=== PATIENT | male | born 1940 | race Caucasian/White ===

== ENCOUNTER 2023-03-23 20:56 | Inpatient (IN) | payer OTHER ==
--- OUTSIDE RECORDS SUMMARY | 2023-03-23 20:59 | XMS REPORT | Continuity of Care Document ---
:1940 Author Organization [facility] t Address [address] [facility] [address] [place] [address] Care Team Providers Name Role Phone NISHA SARGENT Primary Care Physician Unavailable ROSCOE SHEPHERD Attending Clinician Unavailable SHAUNA TREADWELL Attending Clinician Unavailable Roscoe Shepherd MD Attending Clinician 2, Adc Lab Attending Clinician Unavailable LabLuis Angel - Jatinder Attending Clinician Unavailable Doctor Unassigned, [place] Attending Clinician Unavailable RADIOLOGY Attending Clinician Unavailable Radiology Attending Clinician Unavailable NISHA SARGENT Admitting Clinician Unavailable Payers Payer Name Policy Type Policy Number Effective Date Expiration Date Jose clark Yours Florally [id number] 2022 00:00:00 SPRING Problems Condition Condition Condition Status Onset Resolution Last Treating Co mments Source Name Details Category Date Date Treatment Clinician Date No known No known Disease Unive rs active active ity of problems problems [facility] Allergies, Adverse Reactions, Alerts Allergy Allergy Status Severity Reaction(s) Onset Inactive Treating Comm ents Source Name Type Date Date Clinician NO KNOWN Drug Active Univers ALLERGIE Class ity of [facility] [place] Social History Social Habit Start Date Stop Date Quantity Comments Source Exposure to 2022-10-13 2022-10-23 Not sure [facility] SARS-CoV-2 (event) 00:00:00 08:28:00 Medica l Branch Sex Ass[birth year] [facility] 00:00:00 00:00:00 Medical Branch Smoking Status Start Date Stop Date Source Tobacco smoking consumption Univ [facility] Medical unknown Branch Medications Ordered Filled Start Stop Current Ordering Indication Dosage Frequency Signature Comments Components Source Medication Medication Date Date Medication? Clinician (SIG) Name Name tc No [id number] 26mCi 26 Univer s 99m-medrona 10-25 millicurie i ty of te 16:30: 16:18 , [place] (DRAXIMAGE 00 :00 Intravenou Med ical MDP-25) s, ONCE, 1 Branch injection dose, On Fri10/25/22 millicurie at 1030, Routine No known No No known Unive rs medications 1-24 medication it y of 09:58: s [address] No known No No known Unive rs medications -24 medication it y of 09:58: s [address] No known No No known Unive rs medications -24 medication it y of 09:58: s [address] No known No No known Unive rs medications -24 medication it y of 09:58: s [address] iopamidol 2021-09- No [id number] 80mL 80 mL, Univers (ISOVUE 2 1205 Intravenou ity o f 370-500 mL) 17:26: 17:32 s, ONCE, 1 [place] injection 00 :00 dose, On Medica l 80 mL Mon Branch 08/26/22 at 1145, Routine Vital Signs Vital Name Observation Time Observation Value Comments Source Systolic blood 2022-10-23 14:42:00 137 mm[Hg] Univer sity of pressure [facility] Diastolic blood 2022-10-23 14:42:00 71 mm[Hg] Unive rsity of [facility] Heart rate 2022-10-23 14:42:00 112 /min [facility] Body temperature 2022-10-23 14:42:00 36.61 Yelena [facility] Respiratory rate 2022-10-23 14:42:00 18 /min [facility] Body height 2022-10-23 14:42:00 170.2 cm [facility] Body weight 2022-10-23 14:42:00 72.576 kg [facility] BMI 2022-10-23 14:42:00 25.06 kg/m2 [facility] Oxygen saturation in 2022-10-23 14:42:00 96 /min [facility] Arterial blood by [facility] Pulse oximetry Branch Procedures Procedure Date / Time Performing Clinician Source Performed PHYSICIAN ORDERS 2022-10-15 06:01:00 Doctor Kolby, [facility] [place] [facility] HB CREATININE SERUM/BLOOD 2022-08-26 18:14:00 Radiology [facility] FOR IMAGING Medical Branch NOTICE OF BILLING 2022-08-26 16:36:39 Doctor Kolby, [facility] PRACTICES FOR MEDICARE [place] [facility] B ranch PATIENTS [facility] PATIENT FINANCIAL 2022-08-26 16:35:55 Doctor Unawolf, [facility] POLICY [place] [facility] NO SHOW OR MISSED 2022-08-26 16:34:58 Doctor Kolby, [facility] APPOINTMENT POLICY [place] [facility] h ACKNOWLEDGEMENT NOTICE OF PRIVACY 2022-08-26 16:34:15 Doctor Kolby, [facility] PRACTICES [place] [facility] CONSENT/REFUSAL FOR 2022-08-26 16:33:33 Doctor Kolby, [facility] DIAGNOSIS AND TREATMENT [place] [facility] ASSIGNMENT OF BENEFITS 2022-08-26 16:32:25 Doctor Kolby, [facility] [place] [facility] REFERRAL- REQUEST/RESPONSE 2022-08-20 06:01:00 Doctor Kolby , [facility] [place] [facility] Encounters Start End Encounter Admission Attending Care Care Encounter Source Date/Time Date/Time Type Type Clinicians Facility Department ID 2022-12-16 2022-12-16 Outpatient Claire TREADWELL [facility] [id number] [facility] 16:00:00 16:00:00 SHAUNA senior f [facility] 2022-10-25 2022-10-25 [facility] [id number] Univers 10:16:25 23:59:00 Encounter Roscoe CABELLO [id number] [place] [id number] [facility] [id number] [facility] 805 Branch 2022-10-25 2022-10-25 [facility] [id number] Univers 10:16:03 10:15:00 ROSCOE townsend [facility] 2022-10-25 2022-10-25 [facility] [id number] Univers 10:00:00 10:15:00 Encounter Roscoe CABELLO [id number] it[facility] [id number] [id number] [facility] [address] [place] 2022-10-23 2022-10-23 Personal Fitness Manager 2, Adc Lab [facility] [id number] Univers 09:45:00 10:00:00 Visit Roscoe Shepherd [id number] it[facility] [id number] [id number] Nj dical NAL 353 [facility] 2022-10-23 2022-10-23 [facility] [id number] Univers 09:00:00 09:43:02 ROSCOE ity [facility] 2022-10-23 2022-10-23 Office [facility] [id number] Univers 09:00:00 09:43:02 Visit Roscoe CABELLO [id number] i ty [facility] [id number] [id number] Nj dical [facility] 204 [facility] 2022-10-23 2022-10-23 [facility] [id number] Univers 08:30:00 08:30:00 ROSCOE ity [facility] 2022-10-17 2022-10-17 Personal Fitness Manager 2, Adc Lab [facility] [id number] Univers 10:00:00 10:15:00 Visit Roscoe Shepherd [id number] it[facility] [id number] [id number] Nj dical NAL [address] [place] [address] 2022-10-17 2022-10-17 Outpatient [facility] [id number] Univers 10:00:00 10:00:00 ROSCOE ity [facility] 2022-10-17 2022-10-17 Telephone Cora [facility] [id number] Univers 00:00:00 00:00:00 Roscoe IRINEO [id number] i ty of [id number] [place] [facility] [id number] Nj jamel JORDAN [address] [place] BUILDING 2022-10-15 2022-10-15 Personal Fitness Manager Lab, Ang - Db [facility] [id number] Univers 12:30:00 12:45:00 Visit Rosoce Shepherd [facility] [id number] ity of [place] [id number] [place] CHERRY?BLEA [phone] Nj papaifeoma [facility] [address] [place] MEDICAL OFFICE BUILDING 2022-10-15 2022-10-15 Outpatient R CORA [facility] [id number] Univers 08:30:00 10:09:48 ROSCOE ity of [facility] 2022-10-15 2022-10-15 Orders Doctor WALDO [id number] Univers 00:00:00 00:00:00 Only Unassigned, GAIL 350.1.13.10 ity of [place] [facility] [id number] [place] [id number] [address] 2022-08-26 2022-08-26 Outpatient R RADIOLOGY [facility] [id number] Univers 10:30:16 23:59:00 ity of [facility] 2022-08-26 2022-08-26 Hospital Radiology [facility] [id number] Univers 10:30:16 23:59:00 Encounter IRINEO [id number] it[place] [id number] [address] 2022-08-20 2022-08-20 Orders Doctor WALDO [id number] Univers 00:00:00 00:00:00 Only Unassigned, GAIL [id number] ity of [place] [facility] [id number] [place] [id number] [address] Results Test Description Test Time Test Comments Results Result Comments Source POCT CREATININE 2022-08-26 18:33:36 Test Item Value Reference Range Interpretation Comme nts POCT Creatinine (test code = [id number]) 1.1 mg/dL 0.6-1.3 Lab Interpretation (test code = 67329-6) Normal [facility]
[2023-03-23 22:09] LABS: Absolute Lymphocytes (CBC) 0.5 K/uL (0.7-4.9); Hematocrit 25.7 % (39.6-49.0); Lymphocytes % 5.7 % (15.3-44.8); MPV 6.7 fL (7.6-11.3); RBC Red Blood Cell Count 3.05 M/uL (4.33-5.43)
[2023-03-23] MEDS ORDERED: NA CHLORIDE 0.9% 1,000 ML ONE ×2 (22:11→23:26)
[2023-03-23 22:15] LABS: Albumin 2.7 g/dL (3.4-5.0); Bilirubin Total 0.9 mg/dL (0.2-1.0); Potassium 4.2 mEq/L (3.5-5.1); Protein, Total 6.8 g/dL (6.4-8.2)
--- NOTE | 2023-03-23 22:33 | RAD REPORT ---
EXAM DESCRIPTION: Carlos Single View03/23/2023 10:18 pm CLINICAL HISTORY: fever COMPARISON: November 2022 FINDINGS: The lungs appear clear of acute infiltrate. The heart is normal size. A battery pack overlies the left chest IMPRESSION: No acute abnormalities displayed
[2023-03-23 22:34] LABS: Protime INR 1.04
[2023-03-23 23:27] LABS: Blood Morphology Comment NOT SEEN (NOT SEEN); Platelet Estimate ADEQ
[2023-03-23 23:38] LABS: Specific Gravity 1.016 (1.005-1.030); Urine Bacteria <20 /HPF (<20); Urine Bilirubin NEGATIVE (Negative); Urine Blood Negative (Negative); Urine Clarity Clear (Clear); Urine Color Light-Yellow (Yellow); Urine Glucose NEGATIVE (Negative); Urine Protein TRACE (Negative); Urine RBC <5 /HPF (None Seen); Urine Urobilinogen Normal (Normal)
[2023-03-23] MEDS ORDERED: HYDROCORTISONE SUC 100 MG INJ ONE (23:46)
--- NOTE | 2023-03-24 00:43 | ER ---
Nurse's Notes [facility] Name: Good Barnes Age: 83 yrs Sex: Male : 1940 Arrival Date: 03/23/2023 Time: 20:56 Bed 17 Private MD: Diagnosis: Fever, unspecified;Hypotension, unspecified Presentation: 03/23 21:17 Chief complaint: EMS states: Pt's significant other called EMS reporting AMS. Pt's temp jb4 was 103.1 gave 975mg of tylenol. pt has a 20g to the RFA. BGL was 174. Coronavirus screen: At this time, the client does not indicate any symptoms associated with coronavirus-19. Ebola Screen: No symptoms or risks identified at this time. Initial Sepsis Screen: Does the patient meet any 2 criteria? Altered Mental Status. HR > 90 bpm. Does the patient have a suspected source of infection? No. Patient's initial sepsis screen is negative. Risk Assessment: Do you want to hurt yourself or someone else? Patient reports no desire to harm self or others. Onset of symptoms was March 23, 2023. Transition of care: patient was not received from another setting of care. 21:17 Method Of Arrival: EMS: [facility] jb4 21:17 Acuity: NATHAN 3 jb4 Historical: - Allergies: 21:20 No Known Allergies; jb4 - PMHx: 21:20 Cerebrovascular accident; diabetes mellitus; Hypertensive disorder; jb4 Hypercholesterolemia; - PSHx: 21:20 cardiac stent; hernia; jb4 Screenin:15 [facility] ED Fall Risk Assessment (Adult) History of falling in the last 3 months, jb4 including since admission No falls in past 3 months (0 pts) Confusion or Disorientation Yes (5 pts) Score/Fall Risk Level 3 or more points = High Risk Oriented to surroundings, Maintained a safe environment. Abuse screen: Denies threats or abuse. Nutritional screening: No deficits noted. Tuberculosis screening: No symptoms or risk factors identified. Assessment: 21:21 General: Appears in no apparent distress. uncomfortable, Behavior is calm, cooperative. jb4 Pain: Denies pain. Neuro: Level of Consciousness is awake, alert, obeys commands, Oriented to person, place. Cardiovascular: Patient's skin is warm and dry. Respiratory: Airway is patent Respiratory effort is even, unlabored, Respiratory pattern is regular, symmetrical. GI: No signs and/or symptoms were reported involving the gastrointestinal system. : No signs and/or symptoms were reported regarding the genitourinary system. EENT: Derm: Skin is intact, Skin is pink, warm \T\ dry. Musculoskeletal: Circulation, motion, and sensation intact. Range of motion: intact in all extremities. 22:30 Reassessment: Patient appears in no apparent distress at this time. No changes from jb4 previously documented assessment. Patient and/or family updated on plan of care and expected duration. Pain level reassessed. 23:15 Reassessment: Patient appears in no apparent distress at this time. No changes from jb4 previously documented assessment. Patient and/or family updated on plan of care and expected duration. Pain level reassessed. skin break down noted to the penis, provider notified. 03/24 00:22 Reassessment: Pt is resting in bed with eyes closed, respirations are even and jb4 unlabored. 01:18 Reassessment: Patient appears in no apparent distress at this time. No changes from jb4 previously documented assessment. Patient and/or family updated on plan of care and expected duration. Pain level reassessed. attempted to call report, instructed to wait for call back. Vital Signs: 03/23 21:17 BP 104 / 51; Pulse 111; Resp 18; Temp 99.5(O); Pulse Ox 96% on R/A; Weight 62.6 kg (R); jb4 21:45 BP 88 / 43; Pulse 101; Resp 17; Pulse Ox 100% on R/A; jb4 23:37 BP 91 / 44; Pulse 89; Resp 16; Pulse Ox 100% on R/A; jb4 03/24 00:00 BP 99 / 52; Pulse 86; Resp 16; Pulse Ox 100% on R/A; jb4 00:22 BP 86 / 40; Pulse 90; Resp 16; Temp 98.3(Ca); Pulse Ox 99% on R/A; jb4 00:43 BP 98 / 45; Pulse 87; Resp 16; Pulse Ox 100% on R/A; jb4 01:12 BP 124 / 56 Supine (man/); Pulse 88; Resp 17; Temp 97.9(Ca); Pulse Ox 98% on R/A; jb4 01:52 BP 110 / 50 Supine (man/); Pulse 81; Resp 14; Temp 97.8(Ca); Pulse Ox 98% on R/A; jb4 ED Course: 03/23 21:00 Patient arrived in ED. as6 21:[address] [facility] [facility]C [facility] snw 21:01 Martir Reno MD is Attending Physician. snw 21:17 Eze Martin, RN is Primary Nurse. jb4 21:20 Triage completed. jb4 21:20 Arm band placed on right wrist. jb4 21:49 Blood Culture Adult (2) Sent. bc6 21:49 CBC with Diff Sent. bc6 21:49 CMP Sent. bc6 21:49 Lactate w/ 2H reflex if indic. Sent. bc6 21:49 Protime (+inr) Sent. bc6 21:49 Ptt, Activated Sent. bc6 21:50 Inserted saline lock: 22 gauge in right forearm, using aseptic technique. bc6 22:19 Chest Single View XRAY In Process Unspecified. EDMS 03/24 00:41 Cyndi Lerma MD is Hospitalizing Provider. snw 02:15 No provider procedures requiring assistance completed. Patient admitted, IV remains in jb4 place. Administered Medications: 03/23 22:17 Drug: NS 0.9% IV 1000 ml Route: IV; Rate: 1 bolus; Site: right forearm; jb4 23:20 Drug: NS 0.9% IV 1000 ml Route: IV; Rate: 1000 ml; Site: right forearm; as6 23:40 Drug: Solu-CORTEF IVP 100 mg Route: IVP; Site: right antecubital; mb9 Medication: 23:15 VIS not applicable for this client. jb4 Outcome: 03/24 00:42 Decision to Hospitalize by Provider. snw 02:15 Admitted to Tele accompanied by tech, via stretcher, room 406, with chart. jb4 02:15 Condition: stable 02:15 Discharge instructions given to family, Instructed on the need for admit, Demonstrated understanding of instructions. 02:17 Patient left the ED. 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
--- NOTE | 2023-03-24 00:43 | EDPHYS ---
Physician Documentation [facility] [place] Name: Good Barnes Age: 83 yrs Sex: Male : 1940 Arrival Date: 03/23/2023 Time: 20:56 Bed 17 Private MD: ED Physician Martir Reno HPI: 03/23 23:39 This 83 yrs old Male presents to ER via EMS with complaints of fever, weakness. snw 23:39 The patient reports fever, that was measured at 103.1 degrees Fahrenheit. Modifying snw factors: 2mo ago with PA, last month with CVA. It is unknown whether or not the patient has had similar symptoms in the past. The patient has been recently seen by a physician: a neurologist, 1 week(s) ago, check up, no complaints. Historical: - Allergies: 21:20 No Known Allergies; jb4 - PMHx: 21:20 Cerebrovascular accident; diabetes mellitus; Hypertensive disorder; jb4 Hypercholesterolemia; - PSHx: 21:20 cardiac stent; hernia; jb4 ROS: 23:38 Eyes: Negative for injury, pain, redness, and discharge, ENT: Negative for injury, snw pain, and discharge, Neck: Negative for injury, pain, and swelling, Cardiovascular: Negative for chest pain, palpitations, and edema, Respiratory: Negative for shortness of breath, cough, wheezing, and pleuritic chest pain, Abdomen/GI: Negative for abdominal pain, nausea, vomiting, diarrhea, and constipation, Back: Negative for injury and pain, : Negative for injury, bleeding, discharge, and swelling. 23:38 Skin: Negative for injury, rash, and discoloration, Psych: Negative for depression, anxiety, suicide ideation, homicidal ideation, and hallucinations. 23:38 Constitutional: Positive for fatigue, fever, malaise, poor PO intake. 23:38 MS/extremity: Positive for weakness - generalized. 23:38 Neuro: Positive for weakness. Exam: 23:37 Head/Face: Normocephalic, atraumatic. Eyes: Pupils equal round and reactive to light, snw extra-ocular motions intact. Lids and lashes normal. Conjunctiva and sclera are non-icteric and not injected. Cornea within normal limits. Periorbital areas with no swelling, redness, or edema. ENT: Nares patent. No nasal discharge, no septal abnormalities noted. Tympanic membranes are normal and external auditory canals are clear. Oropharynx with no redness, swelling, or masses, exudates, or evidence of obstruction, uvula midline. Mucous membranes moist. Neck: Trachea midline, no thyromegaly or masses palpated, and no cervical lymphadenopathy. Supple, full range of motion without nuchal rigidity, or vertebral point tenderness. No Meningismus. Chest/axilla: Normal chest wall appearance and motion. Nontender with no deformity. No lesions are appreciated. Cardiovascular: Regular rate and rhythm with a normal S1 and S2. No gallops, murmurs, or rubs. Normal PMI, no JVD. No pulse deficits. Respiratory: Lungs have equal breath sounds bilaterally, clear to auscultation and percussion. No rales, rhonchi or wheezes noted. No increased work of breathing, no retractions or nasal flaring. Abdomen/GI: Soft, non-tender, with normal bowel sounds. No distension or tympany. No guarding or rebound. No evidence of tenderness throughout. Back: No spinal tenderness. No costovertebral tenderness. Full range of motion. Skin: Warm, dry with normal turgor. Normal color with no rashes, no lesions, and no evidence of cellulitis. MS/ Extremity: Pulses equal, no cyanosis. Neurovascular intact. Full, normal range of motion. Neuro: Awake and alert, GCS 15, oriented to person, place, time, and situation. Cranial nerves II-XII grossly intact. Motor strength 5/5 in all extremities. Sensory grossly intact. Cerebellar exam normal. Normal gait. Psych: Awake, alert, with orientation to person, place and time. Behavior, mood, and affect are within normal limits. 23:37 Constitutional: The patient appears alert, awake, febrile. Vital Signs: 21:17 BP 104 / 51; Pulse 111; Resp 18; Temp 99.5(O); Pulse Ox 96% on R/A; Weight 62.6 kg (R); jb4 21:45 BP 88 / 43; Pulse 101; Resp 17; Pulse Ox 100% on R/A; jb4 23:37 BP 91 / 44; Pulse 89; Resp 16; Pulse Ox 100% on R/A; jb4 03/24 00:00 BP 99 / 52; Pulse 86; Resp 16; Pulse Ox 100% on R/A; jb4 00:22 BP 86 / 40; Pulse 90; Resp 16; Temp 98.3(Ca); Pulse Ox 99% on R/A; jb4 00:43 BP 98 / 45; Pulse 87; Resp 16; Pulse Ox 100% on R/A; jb4 01:12 BP 124 / 56 Supine (man/); Pulse 88; Resp 17; Temp 97.9(Ca); Pulse Ox 98% on R/A; jb4 01:52 BP 110 / 50 Supine (man/); Pulse 81; Resp 14; Temp 97.8(Ca); Pulse Ox 98% on R/A; jb4 MDM: 03/23 21:23 Patient medically screened. snw 23:40 Differential diagnosis: viral Infection, bacterial infection. Data reviewed: vital snw signs, nurses notes. 23:41 I considered the following discharge prescriptions or medication management in the [facility] emergency department Medications were administered in the Emergency Department. See MAR. Care significantly affected by the following chronic conditions: Diabetes, Hypertension, CVA, PA. Counseling: I had a detailed discussion with the patient and/or guardian regarding: the historical points, exam findings, and any diagnostic results supporting the discharge/admit diagnosis, lab results, radiology results, the need for further work-up and treatment in the hospital. ED course: Pt alert, easily awakens, fever resolved. Hypotensive. Will give Solu-cortef and re-eval. 03/23 21:24 Order name: Blood Culture Adult (2) [facility] 03/23 21:24 Order name: CBC with Diff; Complete Time: 23:35 w 03/23 21:24 Order name: CMP; Complete Time: 22:24 snw 03/23 21:24 Order name: Lactate w/ 2H reflex if indic.; Complete Time: 22:24 [facility] 03/23 21:24 Order name: Protime (+inr); Complete Time: 22:48 snw 03/23 21:24 Order name: Ptt, Activated; Complete Time: 22:48 snw 03/23 21:24 Order name: Urinalysis w/ reflexes; Complete Time: 23:40 snw 03/23 22:13 Order name: Manual Differential; Complete Time: 23:35 EDMS 03/24 00:00 Order name: Flu; Complete Time: 01:16 snw 03/24 00:00 Order name: SARS RAPID; Complete Time: 01:16 snw 03/24 00:56 Order name: Urinalysis w/ reflexes EDMS 03/24 00:56 Order name: Basic Metabolic Panel EDMS 03/24 00:56 Order name: Basic Metabolic Panel EDMS 03/24 00:56 Order name: Basic Metabolic Panel EDMS 03/24 00:56 Order name: Basic Metabolic Panel EDMS 03/24 00:56 Order name: CBC with Automated Diff EDMS 03/24 00:56 Order name: CBC with Automated Diff EDMS 03/24 00:56 Order name: CBC with Automated Diff EDMS 03/24 00:56 Order name: CBC with Automated Diff EDMS 03/24 00:56 Order name: Magnesium EDMS 03/24 00:56 Order name: Magnesium EDMS 03/24 00:56 Order name: Magnesium EDMS 03/24 00:56 Order name: Magnesium EDMS 03/23 21:24 Order name: Chest Single View XRAY; Complete Time: 22:48 snw 03/24 02:00 Order name: CPAP snw 03/23 21:24 Order name: EKG; Complete Time: 21:25 snw 03/24 00:56 Order name: Heart Healthy EDMS 03/23 21:24 Order name: Accucheck; Complete Time: 22:18 snw 03/23 21:24 Order name: Cardiac monitoring; Complete Time: 21:57 snw 03/23 21:24 Order name: EKG - Nurse/Tech; Complete Time: 21:57 snw 03/23 21:24 Order name: IV Saline Lock - Large Bore; Complete Time: 21:40 snw 03/23 21:24 Order name: Labs collected and sent; Complete Time: 21:40 snw 03/23 21:24 Order name: O2 Per Protocol; Complete Time: 21:40 snw 03/23 21:24 Order name: O2 Sat Monitoring; Complete Time: 21:40 snw 03/23 21:24 Order name: Vital Signs; Complete Time: 21:40 snw Administered Medications: 22:17 Drug: NS 0.9% IV 1000 ml Route: IV; Rate: 1 bolus; Site: right forearm; jb4 23:20 Drug: NS 0.9% IV 1000 ml Route: IV; Rate: 1000 ml; Site: right forearm; as6 23:40 Drug: Solu-CORTEF IVP 100 mg Route: IVP; Site: right antecubital; mb9 Disposition: 03/24 13:13 Co-signature as Attending Physician, Martir Reno MD I agree with the assessment and kdr plan of care. Disposition Summary: 03/24/23 00:42 Hospitalization Ordered Hospitalization Status: Inpatient Admission snw Provider: Cyndi Lerma snw Location: Telemetry/MedSurg (Inpatient) snw Condition: Stable snw Problem: an acute exacerbation snw Symptoms: are unchanged snw Bed/Room Type: Standard snw Room Assignment: 406(03/24/23 01:15) jb4 Diagnosis - Fever, unspecified snw - Hypotension, unspecified snw Forms: - Medication Reconciliation Form snw - SBAR form snw Signatures: Dispatcher [employer] EDMS Martir Reno MD MD kdr [address] [place], ADVISORY INTERNS[employer]IP-C ADVISORY INTERNSHIP-Csnw Eze Martin, RN RN jb4 Gary Aldrich RN RN as6 Ivory Belle, RN RN mb9 Corrections: (The following items were deleted from the chart) 03/23 21:20 21:20 PMHx: Hypertensive disorder; jb4 jb4 03/24 01:15 00:42 snw jb4
[2023-03-24] MEDS ORDERED: ONDANSETRON 4 MG/2 ML VIAL IV PRN (00:49)
--- NOTE | 2023-03-24 00:49 | P.HP ---
Certification for Inpatient Patient admitted to: Inpatient With expected LOS: <2 Midnights Patient will require the following post-hospital care: Other (Speech, PT therapy) Practitioner: I am a practitioner with admitting privileges, knowledge of patient current condition, hospital course, and medical plan of care. Services: Services provided to patient in accordance with Admission requirements found in Title 42 Section 412.3 of the Code of Federal Regulations Patient History Date of Service: 03/24/23 Reason for admission: Fever History of Present Illness: 83 year old male with past medical history of MELVIN (noncomplaint w cpap) HLD, DM, Recent GA PCI x 4, CVA presents to the emergency room for fever. is at bedside is primary historian reports her has had fever, chills over the last 2 days. She reports he had had decreased appetite, 30 lb loss since GA november/CVA february. She reports he is not eating, he possibly aspirating with food and liquids. She reports her seeing neurologist, 1 week ago. She reports he ambulates with walker, has upper extremity weakness. she denies any overt cough, choking, verbalization of headache, dizziness, syncope, worsening focal deficits, shortness of breath, chest pain or edema. Allergies No Known Allergies Allergy (Verified 12/16/22 02:23) Home Medications: Ascorbic Acid [Vitamin C] 1,000 mg PO DAILY 12/16/22 Gabapentin 300 mg PO TID 12/16/22 Glimepiride 1 mg PO DAILY 12/16/22 Metformin HCl 1,000 mg PO DAILY 12/16/22 Omeprazole 20 mg PO DAILY 12/16/22 Vitamin B12 5000 1 tab PO DAILY 12/16/22 Vitamin D 5000 1 tab PO DAILY 12/16/22 Metoprolol Tartrate [Lopressor*] 25 mg PO BID 6AM 6PM #60 tab 12/19/22 lisinopriL [Lisinopril] 5 mg PO DAILY #30 tab 12/19/22 Amox/Clavulanate [Augmentin 875-125 Tab*] 875 mg PO BID #20 tab 12/27/22 Aspirin [Aspirin EC] 81 mg PO DAILY #30 tab 12/27/22 Atorvastatin Calcium [Lipitor] 40 mg PO BEDTIME #30 tab 12/27/22 POLYV ALC 1.4% Opth [Liquiflim Tears 1.4%*] 1 drops EACH EYE TID PRN bottle 12/27/22 Ticagrelor [Brilinta*] 90 mg PO BID #60 tab 12/27/22 - Past Medical/Surgical History Diabetic: Yes -: Type 2 Diabetes -: Hypertension -: Coronary Artery Disease -: CVA -: Hyperlipdemia -: Cardiac cath with stent -: Hernia repair -: Left carotid endarterectomy Psychosocial/ Personal History: Patient lives in [place] with his girlfriend of 20 years. He is originally from [place]. - Social History Alcohol use: No CD- Drugs: No Caffeine use: No Review of Systems General: As per HPI Physical Examination - Physical Exam General: Alert, Oriented x2, Other (Moderate generalized weakness, ) HEENT: Atraumatic, Normocephalic Neck: Supple, 2+ carotid pulse no bruit Respiratory: Clear to auscultation bilaterally, Diminished Cardiovascular: No edema, Regular rate/rhythm Capillary refill: <2 Seconds Gastrointestinal: Normal bowel sounds Musculoskeletal: No clubbing, No swelling Integumentary: No rashes, No breakdown Neurological: Normal speech, Cranial nerves 3-12 intact - Studies Laboratory Data (last 24 hrs) 03/23/23 21:40: PT 12.3, INR 1.04, APTT 34.2 03/23/23 21:40: Sodium 137, Potassium 4.2, BUN 24 H, Creatinine 0.99, Glucose 129 H, Total Bilirubin 0.9, AST 32, ALT 42, Alkaline Phosphatase 82 03/23/23 21:40: WBC 8.10, Hgb 8.5 L, Hct 25.7 L, Plt Count 207 Assessment and Plan - Plan Assessment/Plan Sepsis like d/t aspiration pneumonia Recent CVA recent 30 lb wt loss Recent GA PCI x 4on plavix HLD HTN DM DVT prophlx Assessment/Plan Sepsis like d/t aspiration pnemonia start Zosyn,Speech/swallow eval, BC, Urine cultures, CXR ordered Recent CVA PT, speech eval, CM for DC planning Recent GA PCI x 4on plavix recent 30 lb wt loss Dietary consult for edwardo count, wt loss HLD resume apporp home meds when tolerating po HTN DM DVT prophlx Diet NPO until swallow pascual Full Code DVT Lovenox Plan to discharge in: Greater than 2 days - Advance Directives Does patient have a Living Will: No Does patient have a Durable POA for Healthcare: Yes - Code Status/Comfort Care Code Status: Full Code Physician Review: Patient Assessed, Agree with Above Assessment and Plan Critical Care: No Time Spent Managing Pts Care (In Minutes): 55
[2023-03-24 01:14] LABS: SARS-CoV-2 Antigen Rapid Res Negative (Negative)
[2023-03-24 02:46] VITALS: BMI 22.2
[2023-03-24 06:13] LABS: Absolute Lymphocytes (CBC) 0.4 K/uL (0.7-4.9); Hematocrit 23.5 % (39.6-49.0); Lymphocytes % 6.8 % (15.3-44.8); MCV 83.9 fL (80-100); MPV 6.8 fL (7.6-11.3); RBC Red Blood Cell Count 2.81 M/uL (4.33-5.43)
[2023-03-24 06:26] LABS: Potassium 4.2 mEq/L (3.5-5.1)
[2023-03-24] MEDS: INSULIN -REGULAR HUMAN 50 UNIT/0.5 ML ML SQ SCH ×4 (07:30→21:08)
[2023-03-24] MEDS: PIPER TAZO 3.375 GM in NA CHLORIDE 0.9% 100 ML IV SCH ×2 (08:53→17:01)
[2023-03-24] MEDS: ENOXAPARIN 40 MG/0.4 ML SQ SCH (08:53)
[2023-03-24] MEDS: ASPIRIN EC 81 MG TAB PO SCH (11:20)
[2023-03-24] MEDS: CLOPIDOGREL 75 MG TABLET PO SCH (11:20)
--- NOTE | 2023-03-24 14:21 | RAD REPORT ---
EXAM DESCRIPTION: CT - Thorax Wo Con - 03/24/2023 10:45 am CLINICAL HISTORY: eval for aspiration COMPARISON: No comparisons TECHNIQUE: Axial thin cut images of the chest were obtained without IV contrast. Multiplanar reforma ts were generated and reviewed. All CT scans are performed using dose optimization technique as appropriate and may include automated exposure control or mA/KV adjustment according to patient size. FINDINGS: No mass or infiltrate in the lung parenchyma, apart from mild right basilar reticular suarez ges, likely atelectatic. No pleural thickening. Trace right pleural effusion. . No pneumothorax. No abnormal mediastinal or hilar masses or lymphadenopathy seen. No significant aortic or pulmonary a rtery findings. Assessment is limited in the absence of IV contrast. Moderate to advanced atherosclerotic calcifications along the proximal coronary arteries and thoracic aorta. No chest wall mass or abnormal axillary lymphadenopathy. Evaluation of the solid abdominal structures reveals bilateral renal cysts, including a transcortical left superior pole cyst with thin calcified septations, incompletely imaged. Small left liver lobe s ubcapsular measured 1.8 centimeter. IMPRESSION: No acute process within the chest. Incidental findings as above.
--- NOTE | 2023-03-24 19:30 | EKG ---
Test Date: 2023-03-23 Test Time: 21:58:21 Impersonator Character: [place] MEASUREMENT RESULTS: Intervals: Rate: 102 IN: 164 QRSD: 84 QT: 310 QTc: 404 [place]: P: 61 IN: 164 QRS: 35 T: 94 INTERPRETIVE STATEMENTS: Sinus tachycardia Nonspecific T wave abnormality Abnormal ECG Compared to ECG 12/22/2022 19:48:56 Sinus rhythm no longer present T-wave abnormality still present Electronically Signed On 03-24-23 19:28:34 CDT by Isaias Perez
[2023-03-24] MEDS: ATORVASTATIN 40 MG TAB PO SCH (21:08)
[2023-03-24] MEDS: ACETAMINOPHEN 500 MG TAB PO PRN (21:12)
[2023-03-25] MEDS: PIPER TAZO 3.375 GM in NA CHLORIDE 0.9% 100 ML IV SCH ×3 (00:36→16:31)
[2023-03-25 05:46] LABS: Hematocrit 27.7 % (39.6-49.0); Lymphocytes % 19.8 % (15.3-44.8); MCV 84.3 fL (80-100); MPV 6.9 fL (7.6-11.3); RBC Red Blood Cell Count 3.28 M/uL (4.33-5.43)
[2023-03-25 06:04] LABS: Magnesium 2.1 mg/dL (1.6-2.4); Potassium 3.4 mEq/L (3.5-5.1)
[2023-03-25] MEDS: INSULIN -REGULAR HUMAN 50 UNIT/0.5 ML ML SQ SCH ×4 (07:30→21:00)
[2023-03-25] MEDS: CLOPIDOGREL 75 MG TABLET PO SCH (08:29)
[2023-03-25] MEDS: FOLIC ACID 1 MG TABLET PO SCH (08:29)
[2023-03-25] MEDS: ASPIRIN EC 81 MG TAB PO SCH (08:29)
[2023-03-25] MEDS: ENOXAPARIN 40 MG/0.4 ML SQ SCH (08:29)
[2023-03-25] MEDS ORDERED: CLOPIDOGREL 75 MG TABLET PO SCH (09:00)
[2023-03-25] MEDS ORDERED: ASPIRIN EC 81 MG TAB PO SCH (09:00)
[2023-03-25] MEDS ORDERED: POTASSIUM CL SA 10 MEQ TAB PO ONE (09:00)
--- NOTE | 2023-03-25 15:52 | P.PN ---
Subjective Date of Service: 03/25/23 Chief Complaint: Fever No acute events overnight. He reports generalized weakness. 4/4 blood cultures have returned positive for Streptococcus. He denies any chest pain, palpitations, or shortness of breath. He is working well with PT. Review of Systems 10-point ROS is otherwise unremarkable General: Weakness Physical Examination - Vital Signs Temperature: 97.6 F Blood Pressure: 113/53 Pulse: 81 Respirations: 16 Pulse Ox (%): 98 - Physical Exam General: Alert, In no apparent distress, Oriented x3 HEENT: Atraumatic, Mucous membr. moist/pink, Sclerae nonicteric Neck: JVD not distended Respiratory: Clear to auscultation bilaterally, Normal air movement Cardiovascular: No edema, Regular rate/rhythm, Normal S1 S2, No gallops, No rubs, No murmurs Gastrointestinal: Normal bowel sounds, Soft and benign, Non-distended, No tenderness, No rebound, No guarding Musculoskeletal: No clubbing Integumentary: No rashes Neurological: Normal speech, Normal affect - Studies Microbiology Data (last 24 hrs): 03/23/23 22:00 Blood - Blood Blood Culture Gram Stain - Final 03/23/23 22:00 Blood - Blood Gram Stain - Final 03/23/23 21:40 Blood - Blood Blood Culture Gram Stain - Final 03/23/23 21:40 Blood - Blood Gram Stain - Final Assessment And Plan - Plan # Streptococcus Bacteremia - Unclear source at this time - Chest x-ray = "no acute abnormalities displayed" - CT chest = "no acute process within the chest." - Does not meet sepsis criteria - Consulted Infectious Diseases - recommendations appreciated - Continue piperacillin-tazobactam - Ordered transthoracic echocardiogram to evaluate for valvular vegetations # Coronary Artery Disease s/p PCI # History of Cerebrovascular Accident # Right Carotid Artery Stenosis s/p Carotid Endarterectomy # Moderate Left Carotid Artery Stenosis # Hypertension # Dyslipidemia - Continue aspirin, atorvastatin, clopidogrel - Hold metoprolol, lisinopril due to soft blood pressures on arrival # Unintentional Weight Loss - Although his poor nutritional intake can explain his unintentional weight loss, it was emphasized that it is important for him to maintain all age- appropriate cancer screens - Consult nutrition # Type II Diabetes Mellitus - Correction scale insulin # Bilateral Renal Cysts # Left Liver Lobe Lesion (1.8 cm) - Noted on CT scan - Follow-up with PCP for further evaluation Nelson Membreno M.D.
[2023-03-25] MEDS: ACETAMINOPHEN 500 MG TAB PO PRN (21:26)
[2023-03-25] MEDS: ATORVASTATIN 40 MG TAB PO SCH (21:27)
[2023-03-26] MEDS: PIPER TAZO 3.375 GM in NA CHLORIDE 0.9% 100 ML IV SCH ×3 (00:20→16:20)
[2023-03-26 07:00] LABS: Absolute Lymphocytes (CBC) 0.9 K/uL (0.7-4.9); Hematocrit 24.6 % (39.6-49.0); Lymphocytes % 18.4 % (15.3-44.8); MCV 83.7 fL (80-100); MPV 6.6 fL (7.6-11.3); RBC Red Blood Cell Count 2.93 M/uL (4.33-5.43)
[2023-03-26 07:23] LABS: Potassium 3.8 mEq/L (3.5-5.1)
[2023-03-26] MEDS: INSULIN -REGULAR HUMAN 50 UNIT/0.5 ML ML SQ SCH ×4 (07:30→20:16)
[2023-03-26] MEDS: CLOPIDOGREL 75 MG TABLET PO SCH (07:55)
[2023-03-26] MEDS: ENOXAPARIN 40 MG/0.4 ML SQ SCH (07:55)
[2023-03-26] MEDS: FOLIC ACID 1 MG TABLET PO SCH (07:55)
[2023-03-26] MEDS: ASPIRIN EC 81 MG TAB PO SCH (07:55)
[2023-03-26] MEDS ORDERED: POTASSIUM CL SA 10 MEQ TAB PO ONE (09:00)
--- NOTE | 2023-03-26 10:20 | P.CNS ---
Date of Consult: 03/26/23 Reason for Consult: Bacteremia Chief Complaint: Fever History of Present Illness: Patient is an 83 yo male with a hisotry of DM, recent NH s/p PCIx4, CVA and HTN who presented to the ED with complaints of fever. Patient reported fever/chills over 2 days prior to admission along with decreased appetite. ED workup revealing bacteremia and ID was consulted. Allergies No Known Allergies Allergy (Verified 12/16/22 02:23) Home medications list reviewed: Yes Home Medications: Ascorbic Acid [Vitamin C] 500 mg PO BID 12/16/22 Gabapentin 300 mg PO TID 12/16/22 Glimepiride 1 mg PO DAILY 12/16/22 Omeprazole 20 mg PO DAILY 12/16/22 Vitamin B12 5000 1 tab PO DAILY 12/16/22 Vitamin D 5000 1 tab PO DAILY 12/16/22 Metoprolol Tartrate [Lopressor*] 25 mg PO BID 6AM 6PM #60 tab 12/19/22 lisinopriL [Lisinopril] 5 mg PO DAILY #30 tab 12/19/22 Aspirin [Aspirin EC] 81 mg PO DAILY #30 tab 12/27/22 Atorvastatin Calcium [Lipitor] 40 mg PO BEDTIME #30 tab 12/27/22 POLYV ALC 1.4% Opth [Liquiflim Tears 1.4%*] 1 drops EACH EYE TID PRN bottle 12/27/22 Ticagrelor [Brilinta*] 90 mg PO BID #60 tab 12/27/22 Clopidogrel Bisulfate [Plavix*] 1 tab PO DAILY 03/24/23 Finasteride [Proscar*] 1 tab PO DAILY 03/24/23 Mirtazapine [Remeron*] 1 tab PO DAILY 03/24/23 - Past Medical/Surgical History Diabetic: Yes -: Type 2 Diabetes -: Hypertension -: Coronary Artery Disease -: CVA -: Hyperlipdemia -: Cardiac cath with stent -: Hernia repair -: Left carotid endarterectomy Psychosocial/ Personal History: Patient lives in [place] with his girlfriend of 20 years. He is originally from [place]. - Social History Alcohol use: No CD- Drugs: No Caffeine use: No Place of Residence: Home Review of Systems 10-point ROS is otherwise unremarkable General: Fever, Weakness Neurological: As per HPI Physical Examination Temp Pulse Resp BP Pulse Ox 97.9 F 90 18 118/57 L 99 03/26/23 08:00 03/26/23 08:00 03/26/23 08:00 03/26/23 08:00 03/26/23 08:00 General: Alert, In no apparent distress, Oriented x3 HEENT: Atraumatic, Normocephalic Neck: Supple, JVD not distended Respiratory: Clear to auscultation bilaterally, Normal air movement Cardiovascular: No edema, Normal pulses Gastrointestinal: Normal bowel sounds, Soft and benign, Non-distended Musculoskeletal: No clubbing, No swelling Integumentary: No rashes, No breakdown Neurological: Normal speech, Normal affect Urinary: Jasso catheter Laboratory Data - Reviewed Microbiology Data - Reviewed Imagings Data: - Reviewed Conclusions/Impression: Problem List CAD s/p PCI 2022 CVA 2022 Hypertension Hyperlibidemia Diabetes Mellitus type II Unintentional weight loss Bacteremia Moderate PCM Anemia Enterococcus faecalis Bacteremia - Blood cultures 03/23: Enterococcus faecalis - Urinalysis 03/23 unremarkable - Currently on Zosyn (started 03/24) unclear etiology pending TTE. Recent NH with stent placement in 2022. Recent CVA november 2022. - No leukocytosis - Afebrile >48 hours Recommendations - Continue Zosyn for now. - Follow up with TTE results - Supplemental nutrition Case discussed with Dr. Heredia, N. ID will follow up and monitor patient closely.
--- NOTE | 2023-03-26 11:17 | P.PN ---
Subjective Date of Service: 03/26/23 Chief Complaint: Fever He states that he had difficulty sleeping overnight. He has been afebrile, and reports no particular concerns this morning. 4/4 blood cultures have returned positive for 2 different strains of Enterococcus Faecalis. Infectious Diseases w as consulted, recommendations are appreciated. He denies any chest pain, palpitations, or shortness of breath. Review of Systems 10-point ROS is otherwise unremarkable Physical Examination - Vital Signs Temperature: 97.9 F Blood Pressure: 118/57 Pulse: 90 Respirations: 18 Pulse Ox (%): 99 - Studies Microbiology Data (last 24 hrs): 03/23/23 21:40 Blood - Blood Aerobic Blood Culture - Final Enterococcus Faecalis 03/23/23 21:40 Blood - Blood Blood Culture Gram Stain - Final 03/23/23 21:40 Blood - Blood Anaerobic Blood Culture - Final Enterococcus Faecalis 03/23/23 21:40 Blood - Blood Gram Stain - Final 03/23/23 22:00 Blood - Blood Aerobic Blood Culture - Final Enterococcus Faecalis 03/23/23 22:00 Blood - Blood Blood Culture Gram Stain - Final 03/23/23 22:00 Blood - Blood Anaerobic Blood Culture - Final Enterococcus Faecalis 03/23/23 22:00 Blood - Blood Gram Stain - Final Assessment And Plan - Plan - Physical Exam General: Alert, In no apparent distress, Oriented x3 HEENT: Atraumatic, Mucous membr. moist/pink, Sclerae nonicteric Neck: JVD not distended Respiratory: Clear to auscultation bilaterally, Normal air movement Cardiovascular: No edema, Regular rate/rhythm, No murmurs Gastrointestinal: Normal bowel sounds, Soft, Non-distended, No tenderness Musculoskeletal: No clubbing Integumentary: No rashes Neurological: Normal speech, Normal affect # Enterococcus Faecalis Bacteremia - Unclear source at this time - Urinalysis = fairly unremarkable - Chest x-ray = "no acute abnormalities displayed" - CT chest = "no acute process within the chest." - Does not meet sepsis criteria - Consulted Infectious Diseases and spoke with SCHOOL SUPERINTENDENT Sgarbi - recommendations appreciated - Continue piperacillin-tazobactam - Ordered transthoracic echocardiogram to evaluate for valvular vegetations # Coronary Artery Disease s/p PCI # History of Cerebrovascular Accident # Right Carotid Artery Stenosis s/p Carotid Endarterectomy # Moderate Left Carotid Artery Stenosis # Hypertension # Dyslipidemia - Continue aspirin, atorvastatin, clopidogrel - Hold metoprolol, lisinopril due to soft blood pressures on arrival # Unintentional Weight Loss - Although his poor nutritional intake can explain his unintentional weight loss, it was emphasized that it is important for him to maintain all age- appropriate cancer screens - Advised to follow-up with PCP to obtain these screens, including, but not limited to, colonoscopy, prostate cancer, and lung cancer screening - Consult nutrition # Type II Diabetes Mellitus - Correction scale insulin # Bilateral Renal Cysts # Left Liver Lobe Lesion (1.8 cm) - Noted on CT scan - Follow-up with PCP for further evaluation Nelson Membreno M.D.
[2023-03-26] MEDS: ACETAMINOPHEN 500 MG TAB PO PRN (20:15)
[2023-03-26] MEDS: ATORVASTATIN 40 MG TAB PO SCH (20:15)
[2023-03-26] MEDS: GLUCERNA SHAKE 237 ML CAN PO SCH (20:16)
[2023-03-27] MEDS: PIPER TAZO 3.375 GM in NA CHLORIDE 0.9% 100 ML IV SCH ×3 (01:42→17:00)
[2023-03-27 05:20] LABS: Hematocrit 28.8 % (39.6-49.0)
[2023-03-27] MEDS: INSULIN -REGULAR HUMAN 50 UNIT/0.5 ML ML SQ SCH ×4 (07:30→22:19)
[2023-03-27] MEDS: FOLIC ACID 1 MG TABLET PO SCH (08:22)
[2023-03-27] MEDS: CLOPIDOGREL 75 MG TABLET PO SCH (08:22)
[2023-03-27] MEDS: ASPIRIN EC 81 MG TAB PO SCH (08:22)
[2023-03-27] MEDS: ENOXAPARIN 40 MG/0.4 ML SQ SCH (08:22)
[2023-03-27] MEDS: GLUCERNA SHAKE 237 ML CAN PO SCH ×2 (08:23→20:30)
--- NOTE | 2023-03-27 12:12 | EKG ---
Test Date: 2023-03-27 Test Time: 11:20:29 [employer]: [place] MEASUREMENT RESULTS: Intervals: Rate: 115 HI: 192 QRSD: 80 QT: 324 QTc: 448 [place]: P: 76 HI: 192 QRS: 11 T: 267 INTERPRETIVE STATEMENTS: Sinus tachycardia T wave abnormality, consider lateral ischemia Abnormal ECG Compared to ECG 03/23/2023 21:58:21 Possible ischemia now present T-wave abnormality still present Electronically Signed On 03-27-23 12:11:41 CDT by Jason Jha
[2023-03-27 12:18] LABS: Phosphorus 2.4 mg/dL (2.5-4.9); Potassium 3.8 mEq/L (3.5-5.1)
--- NOTE | 2023-03-27 12:54 | ECHO ---
HEIGHT: 5 ft 6 in WEIGHT: 138 lb 0 oz DATE OF STUDY: 03/27/[address]: Nelson Membreno MD 2-DIMENSIONAL: YES M.MODE: YES DOPPLER: YES COLOR FLOW: YES TDS: PORTABLE: YES DEFINITY: BUBBLE STUDY: DIAGNOSIS: BACTEREMIA CARDIAC HISTORY: CATHERIZATION: SURGERY: PROSTHETIC VALVE: PACEMAKER: MEASUREMENTS (cm) DIASTOLIC (NORMALS) SYSTOLIC (NORMALS) IVSd 0.9 (0.6-1.2) LA Diam 3.2 (1.9-4.0) LVEF 60% LVIDd 3.8 (3.5-5.7) LVIDs 2.6 (2.0-3.5) %FS 31% LVPWd 1.0 (0.6-1.2) Ao Diam 2.9 (2.0-3.7) 2 DIMENSIONAL ASSESSMENT: RIGHT ATRIUM: NORMAL LEFT ATRIUM: NORMAL RIGHT VENTRICLE: NORMAL LEFT VENTRICLE: NORAML TRICUSPID VALVE: NORMAL MITRAL VALVE: MILD MITRAL REGURGITATION PULMONIC VALVE: NORMAL AORTIC VALVE: MILD AORTIC INSUFFICIENCY PERICARDIAL EFFUSION: NONE AORTIC ROOT: NORMAL LEFT VENTRICULAR WALL MOTION: NORMAL DOPPLER/COLOR FLOW: SEE BELOW COMMENTS: 1. NORMAL LEFT VENTRICULAR EJECTION FRACTION 55-60% WITH NORMAL WALL MOTION 2. MILD MITRAL REGURGITATION 3. MILD AORTIC INSUFFICIENCY 4. THICKENED AORTIC VALVE/ MITRAL VALVE, NO CLEAR VENEGATION IS SEEN. IF CLINICALLY INDICATED TRANSESOPHAGEAL ECHOCARDIOGRAM CAN BE HELPFUL. TECHNOLOGIST: VERONICA KNOX
[2023-03-27] MEDS ORDERED: POTASSIUM PHOS IN 0.9 % NACL 15 MMOL/250 ML BAG IV ONE (13:46)
--- NOTE | 2023-03-27 14:55 | P.PN ---
Date of Service: 03/27/23 Chief Complaint: Fever Subjective: Patient seen and examined at bedside. Sitting in chair, breathing comfortably on room air. Reports restless and difficulty sleeping overnight. Physical Examination Temp Pulse Resp BP Pulse Ox 97.6 F 109 H 18 149/65 H 98 03/27/23 12:00 03/27/23 12:00 03/27/23 12:00 03/27/23 12:00 03/27/23 12:00 General: Alert, In no apparent distress, Oriented x3 HEENT: Atraumatic, Normocephalic Neck: Supple, JVD not distended Respiratory: Clear to auscultation bilaterally, Normal air movement Cardiovascular: No edema, Normal pulses Gastrointestinal: Normal bowel sounds, Soft and benign, Non-distended Musculoskeletal: No clubbing, No swelling Integumentary: No rashes, No breakdown Neurological: Normal speech, Normal affect Urinary: Jasso catheter draining yellow urine. Laboratory Data - Reviewed Microbiology Data - Reviewed Imagings Data: - Reviewed Medication List: Reviewed Assessment and Plan Problem List CAD s/p PCI 2022 CVA 2022 Hypertension Hyperlibidemia Diabetes Mellitus type II Unintentional weight loss Bacteremia Moderate PCM Anemia Enterococcus faecalis Bacteremia - Blood cultures 03/23: Enterococcus faecalis - Urinalysis 03/23 unremarkable - Currently on Zosyn (started 03/24) unclear etiology - Repeat blood cultures - Recent LA with stent placement in 2022. Recent CVA november 2022. - No leukocytosis - Afebrile >48 hours Recommendations - Continue current antibiotic for now. Patient will require at least 2 weeks of antibiotic therapy. Consider switch to Unasyn IV. - TTE no clear evidence of vegetation, VINCE may be warranted. He has a history of LA with stent placements 2022. Continue with IV antibiotics. Case discussed with Dr. Heredia, N. ID will continue to follow patient as needed.
--- NOTE | 2023-03-27 19:23 | P.PN ---
Subjective Date of Service: 03/27/23 Chief Complaint: Fever This morning, he expresses frustration about the inability to sleep in the hospital. He requests a sleep aid tonight. His transthoracic echocardiogram was inconclusive. A transesophageal echocardiogram has been ordered for tomorrow morning to definitively exclude infective endocarditis. He denies any chest pain, palpitations, or shortness of breath. Review of Systems 10-point ROS is otherwise unremarkable Physical Examination - Vital Signs Temperature: 97.6 F Blood Pressure: 149/65 Pulse: 109 Respirations: 18 Pulse Ox (%): 98 Assessment And Plan - Plan - Physical Exam General: Alert, In no apparent distress, Oriented x3 HEENT: Atraumatic, Mucous membr. moist/pink, Sclerae nonicteric Neck: JVD not distended Respiratory: Clear to auscultation bilaterally, Normal air movement Cardiovascular: No edema, Regular rate/rhythm, No murmurs Gastrointestinal: Normal bowel sounds, Soft, Non-distended, No tenderness Musculoskeletal: No clubbing Integumentary: No rashes Neurological: Normal speech, Normal affect # Enterococcus Faecalis Bacteremia - Unclear source at this time - Urinalysis = fairly unremarkable - Chest x-ray = "no acute abnormalities displayed" - CT chest = "no acute process within the chest." - Does not meet sepsis criteria - Consulted Infectious Diseases and spoke with HORTICULTURE INSTRUCTOR Sgarbi - recommendations appreciated - Continue piperacillin-tazobactam - Transthoracic echocardiogram = "1. normal left ventricular ejection fraction 55-60% with normal wall motion 2. mild mitral regurgitation 3. mild aortic insufficiency 4. thickened aortic valve/ mitral valve, no clear venegation is seen. if clinically indicated transesophageal echocardiogram can be helpful." - Ordered transesophageal echocardiogram # Coronary Artery Disease s/p PCI # History of Cerebrovascular Accident # Right Carotid Artery Stenosis s/p Carotid Endarterectomy # Moderate Left Carotid Artery Stenosis # Hypertension # Dyslipidemia - Continue aspirin, atorvastatin, clopidogrel - Hold metoprolol, lisinopril due to soft blood pressures on arrival # Unintentional Weight Loss - Although his poor nutritional intake can explain his unintentional weight loss, it was emphasized that it is important for him to maintain all age- appropriate cancer screens - Advised to follow-up with PCP to obtain these screens, including, but not limited to, colonoscopy, prostate cancer, and lung cancer screening - Consult nutrition # Type II Diabetes Mellitus - Correction scale insulin # Bilateral Renal Cysts # Left Liver Lobe Lesion (1.8 cm) - Noted on CT scan - Follow-up with PCP for further evaluation Nelson Membreno M.D.
[2023-03-27] MEDS ORDERED: ALPRAZOLAM 0.25 MG TABLET PO ONE (20:10)
[2023-03-27] MEDS: ATORVASTATIN 40 MG TAB PO SCH (20:29)
[2023-03-27] MEDS: MELATONIN 5 MG TABLET PO PRN (22:20)
--- NOTE | 2023-03-27 23:01 | CON ---
Date of Consultation: 03/27/2023 Reason For Consultation: Questionable endocarditis. History Of Present Illness: An 83-year-old male with history of diabetes, dyslipidemia, coronary art jerardo disease, CVA, presented with fever and chills. Found to have bacteremia with Enterococcus faecal is, all 4 bottles, and there was a concern about endocarditis. An echo was done and read and evaluat ed it today. Has mitral valve and aortic valve regurgitation, but the echo was not very clear whethe r there were vegetations or not. I could not appreciate any vegetation. Hence, I was asked to evalu ate for the need for VINCE. Past Medical History: As outlined above in HPI. Medications: Refer to reconciliation sheet for detailed list. Allergies: NO KNOWN DRUG ALLERGIES. Family History: No premature coronary artery disease or cancer. Social History: He does not smoke or drink. Does not use any drugs. Review of Systems: All systems were reviewed and they were negative except what is mentioned in HPI. Physical Examination: Vital Signs: Reviewed. Head and Neck: Pupils are equal, reactive to light. Intact eye movements. No JVD. No cervical lym phadenopathy. Neck is supple. Thyroid is not enlarged. Lungs: Clear to auscultation bilaterally. No rhonchi, wheezes, or crackles. No accessory muscle us e. Heart: Regular rate and rhythm. No extra sounds. Abdomen: Soft, nontender. Bowel sounds positive. No organomegaly. No masses or hernia. No rigidi ty or rebound. Extremities: No edema, clubbing, or cyanosis. Intact pulses. Skin: No rash. Neurologic: Alert, awake, oriented x3. No acute focal deficits appreciated. Investigations: BUN 12, creatinine 0.81, and hemoglobin is 9.3. Assessment And Recommendations: 1.Bacteremia with Enterococcus faecalis. Transthoracic echo was with slightly poor windows, so I wa s not able to tell if there were vegetations or not. There is a mitral valve regurgitation and aorti c valve regurgitation that are mild. At any rate, I will proceed with transesophageal echocardiogram tomorrow. Keep him n.p.o. past midnight and the fact that his cultures are becoming sterile, argues against endocarditis. Definitive answer will be with a transesophageal echocardiogram tomorrow. 2.Dyslipidemia. Continue statin. 3.Coronary artery disease. Continue aspirin and Plavix as well as statin. Thank you for the consult. SR/MODL Voice ID: [id number] Report ID: [id number]
[2023-03-27 23:32] VITALS: O2SAT 97
[2023-03-28] MEDS: PIPER TAZO 3.375 GM in NA CHLORIDE 0.9% 100 ML IV SCH ×2 (00:41→10:52)
[2023-03-28] MEDS: INSULIN -REGULAR HUMAN 50 UNIT/0.5 ML ML SQ SCH ×4 (07:30→20:14)
[2023-03-28] MEDS ORDERED: MIDAZOLAM HCL 5 MG/5 ML INJ ONE (07:32)
[2023-03-28] MEDS ORDERED: METOPROLOL TARTRATE 5 MG/5 ML INJ IV ONE (07:32)
[2023-03-28] MEDS ORDERED: MIDAZOLAM HCL 10 ML ONE (07:32)
[2023-03-28] MEDS ORDERED: LIDOCAINE VISCOUS 2% SOLN 15 ML UDC ONE (07:33)
[2023-03-28] MEDS ORDERED: PHENOL 1.4% ORAL SPRAY 180ML ONE (07:33)
[2023-03-28] MEDS ORDERED: NA CHLORIDE 0.9% 500 ML ONE (07:33)
[2023-03-28] MEDS ORDERED: FLUMAZENIL 0.1 MG/ML (5 mL VIAL) IV ONE (07:33)
[2023-03-28] MEDS ORDERED: ATROPINE SULF 1 MG/10 ML SYR IV ONE (07:33)
--- NOTE | 2023-03-28 09:17 | P.PN ---
Date of Service: 03/28/23 Chief Complaint: Fever Subjective: No acute events reported overnight. Patient off unit for VINCE. Physical Examination Temp Pulse Resp BP Pulse Ox 98.0 F 95 H 16 132/61 95 03/28/23 08:00 03/28/23 08:00 03/28/23 08:00 03/28/23 08:00 03/28/23 08:00 Patient off unit for Transesophageal echocardiogram at this time. Laboratory Data - Reviewed Microbiology Data - Reviewed Imagings Data: - Reviewed Medication List: Reviewed Assessment and Plan Problem List CAD s/p PCI 2022 CVA 2022 Hypertension Hyperlibidemia Diabetes Mellitus type II Unintentional weight loss Bacteremia Moderate PCM Anemia Infective Endocarditis Enterococcus faecalis Bacteremia - Blood cultures 03/23: Enterococcus faecalis - Urinalysis 03/23 unremarkable - Currently on Zosyn (started 03/24) - Repeat blood cultures 03/26: gram positive cocci in 2 of 4 bottles - Recent CO with stent placement in 2022. Recent CVA november 2022. - No leukocytosis - Afebrile >48 hours - Echocardiogram 03/27: "1. NORMAL LEFT VENTRICULAR EJECTION FRACTION 55-60% WITH NORMAL WALL MOTION 2. MILD MITRAL REGURGITATION 3. MILD AORTIC INSUFFICIENCY 4. THICKENED AORTIC VALVE/ MITRAL VALVE, NO CLEAR VENEGATION IS SEEN. IF CLINICALLY INDICATED TRANSESOPHAGEAL ECHOCARDIOGRAM CAN BE HELPFUL." - VINCE 03/28: results not yet posted Recommendations Vegetation seen on VINCE. Started patient on Ampicillin and Rocephin. - Pending transfer to tertiary facility for surgery. Cardiology Dr. Jha following. - Repeat blood cultures - Supportive care and nutritional supplementation as needed Case discussed with Drake Granda. ID will continue to follow patient as needed.
[2023-03-28] MEDS ORDERED: FENTANYL CITR 100 MCG/2 ML ONE (10:15)
[2023-03-28] MEDS: CLOPIDOGREL 75 MG TABLET PO SCH (10:52)
[2023-03-28] MEDS: FOLIC ACID 1 MG TABLET PO SCH ×2 (10:52→10:53)
[2023-03-28] MEDS: ASPIRIN EC 81 MG TAB PO SCH (10:52)
[2023-03-28] MEDS: GLUCERNA SHAKE 237 ML CAN PO SCH ×2 (10:53→20:05)
[2023-03-28] MEDS: ENOXAPARIN 40 MG/0.4 ML SQ SCH (10:53)
[2023-03-28 11:33] LABS: Potassium 3.8 mEq/L (3.5-5.1)
[2023-03-28] MEDS: AMPICILLIN SODIUM 2 GM in NA CHLORIDE 0.9% 100 ML IVPB SCH ×2 (16:13→20:13)
[2023-03-28] MEDS ORDERED: NA CHLORIDE 0.9% 0 ML ONE (16:15)
[2023-03-28] MEDS ORDERED: ALPRAZOLAM 0.25 MG TABLET PO ONE (19:14)
--- NOTE | 2023-03-28 19:57 | PN ---
Date of Progress Note: 03/28/2023 Subjective: Seen by bedside, doing well. No fever. Review of Systems: No chest pain, shortness of breath, orthopnea, or cough. No nausea, vomiting, or diarrhea. All othe r systems were reviewed and they were negative. Objective: Vital Signs: Temperature is 99.0, heart rate is 109, breathing at 17, blood pressure 118 /66, saturating 98% on room air. General: Pleasant elderly male, in no distress. Head and Neck: Pupils are equal, reactive to light. Intact eye movements. No JVD. No cervical lym phadenopathy. Neck is supple. Thyroid is not enlarged. Lungs: Clear to auscultation bilaterally. No rhonchi, wheezing, or crackles. No accessory muscle u se. Heart: Regular rate and rhythm. No extra sounds. Abdomen: Soft, nontender. Bowel sounds positive. No organomegaly. No masses or hernia. No rigidi ty or rebound. Extremities: No edema, clubbing, or cyanosis. Intact pulses. Skin: No rash. Neurologic: Alert, awake, oriented x3. No acute focal deficits appreciated. Investigations: His BUN is 10, creatinine 0.77, hemoglobin is 9.3, and white blood cell count 4.7. Assessment And Recommendations: 1.Aortic valve infective endocarditis. He has vegetation of the aortic valve on VINCE that was perfor med by me this morning. Recommend the ID followup and continue IV antibiotics. Also transfer to [facility] for a CT Surgery evaluation. Likely, this patient will need aortic valve to be replaced. 2.Aortic valve regurgitation is moderate due to the vegetation and the valve endocarditis. Plan for transfer as outlined above for Cardiothoracic Surgery evaluation. SR/MODL Voice ID: [id number] Report ID: [id number]
[2023-03-28] MEDS: CEFTRIAXONE 2,000 MG in NA CHLORIDE 0.9% 100 ML IV SCH (20:03)
[2023-03-28] MEDS: ATORVASTATIN 40 MG TAB PO SCH (20:04)
--- NOTE | 2023-03-28 20:15 | P.PN ---
Subjective Date of Service: 03/28/23 Chief Complaint: Fever He was seen this afternoon following his transesophageal echocardiogram. Symptomatically, he is not reporting any significant complaints. However, his VINCE revealed an aortic valve vegetation concerning for infective endocarditis. Per Dr. Jha, he will require transfer to a facility with Cardiothoracic Surgery available. Dr. Jha has initiated a transfer to [facility]. Mr. Barnes denies any chest pain, palpitations, or shortness of breath at this time. Review of Systems 10-point ROS is otherwise unremarkable General: Other (difficulty sleeping) Physical Examination - Vital Signs Temperature: 98.7 F Blood Pressure: 137/63 Pulse: 102 Respirations: 17 Pulse Ox (%): 90 Assessment And Plan - Plan - Physical Exam General: Alert, In no apparent distress, Oriented x3 HEENT: Atraumatic, Mucous membr. 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 normal left ventricular ejection fraction 55-60% with normal wall motion 2. mild mitral regurgitation 3. mild aortic insufficiency 4. thickened aortic valve/ mitral valve, no clear venegation is seen. if clinically indicated transesophageal echocardiogram can be helpful." - Transesophageal echocardiogram = aortic valve vegtation was noted. He will require Cardiothoracic Surgery evaluation. Dr. Jha has initiated transfer to [facility] # Coronary Artery Disease s/p PCI # History of Cerebrovascular Accident # Right Carotid Artery Stenosis s/p Carotid Endarterectomy # Moderate Left Carotid Artery Stenosis # Hypertension # Dyslipidemia - Continue aspirin, atorvastatin, clopidogrel - Hold metoprolol, lisinopril due to soft blood pressures on arrival # Unintentional Weight Loss - Although his poor nutritional intake can explain his unintentional weight loss, it was emphasized that it is important for him to maintain all age- appropriate cancer screens - Advised to follow-up with PCP to obtain these screens, including, but not limited to, colonoscopy, prostate cancer, and lung cancer screening - Consult nutrition # Type II Diabetes Mellitus - Correction scale insulin # Bilateral Renal Cysts # Left Liver Lobe Lesion (1.8 cm) - Noted on CT scan - Follow-up with PCP for further evaluation Nelson Membreno M.D.
[2023-03-28] MEDS ORDERED: POTASSIUM CL SA 10 MEQ TAB PO ONE (21:00)
[2023-03-28] MEDS: MELATONIN 5 MG TABLET PO PRN (21:11)
[2023-03-29] MEDS: AMPICILLIN SODIUM 2 GM in NA CHLORIDE 0.9% 100 ML IVPB SCH ×4 (00:52→14:54)
--- NOTE | 2023-03-29 01:13 | OP ---
Date of Procedure: 03/28/2023 Surgeon: SARINA SHERIDAN Procedure Performed: Transesophageal echocardiogram. Indication: Bacteremia, possible endocarditis. Description Of Procedure: After risks, benefits, and alternatives were explained, patient agreed to the procedure and signed informed consent. After appropriate time-out, we used the viscous lidocaine to numb the back of throat and give 3 mg of Versed and then VINCE probe was inserted without difficult y. VINCE was performed and there was vegetation of the aortic valve, and then removed the probe. The patient tolerated the procedure very well and sent to recovery in stable condition. Conclusion: Infective aortic valve endocarditis. Plan: Transfer for CT Surgery evaluation. /MODL Voice ID: [id number] Report ID: [id number]
[2023-03-29 04:37] LABS: Absolute Lymphocytes (CBC) 1.5 K/uL (0.7-4.9); Hematocrit 28.8 % (39.6-49.0); Lymphocytes % 19.7 % (15.3-44.8); MCV 84.9 fL (80-100); MPV 6.5 fL (7.6-11.3); RBC Red Blood Cell Count 3.39 M/uL (4.33-5.43)
[2023-03-29 04:52] LABS: Potassium 3.7 mEq/L (3.5-5.1)
[2023-03-29 05:15] VITALS: BP 135/69; TEMP 97.9
[2023-03-29] MEDS ORDERED: POTASSIUM CL SA 10 MEQ TAB PO ONE (05:27)
[2023-03-29] MEDS: INSULIN -REGULAR HUMAN 50 UNIT/0.5 ML ML SQ SCH ×3 (07:30→16:30)
[2023-03-29] MEDS: CLOPIDOGREL 75 MG TABLET PO SCH (10:22)
[2023-03-29] MEDS: ASPIRIN EC 81 MG TAB PO SCH (10:22)
[2023-03-29] MEDS: GLUCERNA SHAKE 237 ML CAN PO SCH (10:23)
[2023-03-29] MEDS: CEFTRIAXONE 2,000 MG in NA CHLORIDE 0.9% 100 ML IV SCH (10:23)
[2023-03-29] MEDS: ENOXAPARIN 40 MG/0.4 ML SQ SCH (10:24)
--- NOTE | 2023-03-29 16:17 | P.DS ---
Admission Date: 03/24/23 Discharge Date: 03/29/23 Disposition: TRANSFER TO GENERAL HOSPITAL Comment: [facility] Discharge Condition: FAIR Reason for Admission: Fever Consultations: 1. Cardiology 2. 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 Good Barnes is a pleasant 83 year old male with a past medical history significant for coronary artery disease s/p PCI, history of cerebrovascular accident, right carotid artery stenosis s/p carotid endarterectomy, moderate left carotid artery stenosis, hypertension, type II diabetes mellitus, and dyslipidemia who was admitted to the [facility] on 03/24/2023 for fevers and chills. He was admitted to the Medicine service. Upon further evaluation, his chest x- ray revealed, "no acute abnormalities displayed." His CT chest revealed, "no acute process within the chest." His urinalysis was fairly unremarkable. His bl ood cultures would return positive for Enterococcus Faecalis. Infectious Diseases was consulted and he was evaluated by Dr. Heredia. A transthoracic echocardiogram was obtained, which revealed, "1. normal left ventricular ejection fraction 55-60% with normal wall motion 2. mild mitral regurgitation 3. mild aortic insufficiency 4. thickened aortic valve/ mitral valve, no clear venegation is seen. if clinically indicated transesophageal echocardiogram can be helpful." A transesophageal echocardiogram was obtained, which revealed an aortic valve vegetation, concerning for aortic valve infective endocarditis. It was decided that he would benefit from a Cardiothoracic Surgery evaluation. With the assistance of Dr. Jha, he was transferred to [facility]. Doc-to-doc w as completed with Dr. Alcala ([facility] Hospitalist), who has generously accepted him for transfer. Dr. Cummings ([facility] Cardiothoracic Surgery) has agreed to see him in consult. On 03/29/2023, he was seen on rounds and deemed medically stable for transfer. He was given the opportunity to ask questions and reported no further questions. Furthermore, all questions were answered to the best of my ability. A copy of this discharge summary will be sent to the above providers to facilitate continuity of care. Today, I personally spent 25 minutes on his case, of which greater than 50% of the time was spent in patient education, counseling, and coordination of care as described above. - Physical Exam General: Alert, In no apparent distress, Oriented x3 HEENT: Atraumatic, Mucous membr. moist/pink, Sclerae nonicteric Neck: JVD not distended Respiratory: Clear to auscultation bilaterally, Normal air movement Cardiovascular: No edema, Regular rate/rhythm, Faint diastolic murmur Gastrointestinal: Normal bowel sounds, Soft, Non-distended, No tenderness Musculoskeletal: No clubbing Integumentary: No rashes Neurological: Normal speech, Normal affect Vital Signs/Physical Exam: Temp Pulse Resp BP Pulse Ox 97.9 F 95 H 16 135/69 97 03/29/23 04:00 03/29/23 04:00 03/29/23 04:00 03/29/23 04:00 03/29/23 04:00 Laboratory Data at Discharge: WBC 7.60 thou/uL (4.3-10.9) 03/29/23 04:19 Hgb 9.6 g/dL (13.6-17.9) L 03/29/23 04:19 Hct 28.8 % (39.6-49.0) L 03/29/23 04:19 Plt Count 287 thou/uL (152-406) 03/29/23 04:19 PT 12.3 SECONDS (9.2-12.8) 03/23/23 21:40 INR 1.04 03/23/23 21:40 APTT 34.2 SECONDS (21.7-34.4) 03/23/23 21:40 Sodium 141 mEq/L (136-145) 03/29/23 04:19 Potassium 3.7 mEq/L (3.5-5.1) 03/29/23 04:19 BUN 8 mg/dL (7-18) 03/29/23 04:19 Creatinine 0.76 mg/dL (0.70-1.30) 03/29/23 04:19 Glucose 126 mg/dL (74-106) H 03/29/23 04:19 Phosphorus 2.4 mg/dL (2.5-4.9) L 03/27/23 11:10 Magnesium 2.0 mg/dL (1.6-2.4) 03/27/23 11:10 Total Bilirubin 0.9 mg/dL (0.2-1.0) 03/23/23 21:40 AST 32 U/L (15-37) 03/23/23 21:40 ALT 42 U/L (16-61) 03/23/23 21:40 Alkaline Phosphatase 82 U/L (45-117) 03/23/23 21:40 Home Medications: Ascorbic Acid [Vitamin C] 500 mg PO BID 12/16/22 Gabapentin 300 mg PO TID 12/16/22 Glimepiride 1 mg PO DAILY 12/16/22 Omeprazole 20 mg PO DAILY 12/16/22 Vitamin B12 5000 1 tab PO DAILY 12/16/22 Vitamin D 5000 1 tab PO DAILY 12/16/22 Metoprolol Tartrate [Lopressor*] 25 mg PO BID 6AM 6PM #60 tab 12/19/22 lisinopriL [Lisinopril] 5 mg PO DAILY #30 tab 12/19/22 Aspirin [Aspirin EC] 81 mg PO DAILY #30 tab 12/27/22 Atorvastatin Calcium [Lipitor] 40 mg PO BEDTIME #30 tab 12/27/22 POLYV ALC 1.4% Opth [Liquiflim Tears 1.4%*] 1 drops EACH EYE TID PRN bottle 12/27/22 Ticagrelor [Brilinta*] 90 mg PO BID #60 tab 12/27/22 Clopidogrel Bisulfate [Plavix*] 1 tab PO DAILY 03/24/23 Finasteride [Proscar*] 1 tab PO DAILY 03/24/23 Mirtazapine [Remeron*] 1 tab PO DAILY 03/24/23 Physician Discharge Instructions: - Continue care at [facility] [place]. Once discharged, please schedule a follow-up appointment with your PCP in 3-5 days - Your blood work showed some anemia, please discuss with your PCP. You will need to schedule a colonoscopy to evaluate for colon cancer. - It is very important that you have all age-appropriate cancer screening since you have had unintentional weight loss. Please discuss with your PCP. - You were found to have spots on your kidneys and liver. Please discuss with your PCP for further evaluation Diet: AHA Activity: Fall precautions Time spent managing pt's care (in minutes): 25
--- NOTE | 2023-03-29 20:58 | PN ---
Date of Progress Note: 03/29/2023 Subjective: Seen by bedside, doing clinically well. Review of Systems: No chest pain, shortness of breath, orthopnea, or cough. No nausea, vomiting, or diarrhea. All othe r systems reviewed and they were negative. Physical Examination: Vital Signs: Temperature is 97.9. No fever. Heart rate is 95, breathing at 16, blood pressure 135/ 69, saturating 97%. General: Pleasant elderly male, in no apparent distress. Head and Neck: Pupils are equal, reactive to light. Intact eye movements. No JVD is noted. Neck i s supple. Thyroid is not enlarged. Lungs: Clear to auscultation bilaterally. No rhonchi, wheezing, or crackles. No accessory muscle u se. Heart: Irregular with aortic diastolic murmur. Abdomen: Soft, nontender. Bowel sounds positive. No organomegaly. No masses or hernia. No rigidi ty or rebound. Extremities: No edema, clubbing, or cyanosis. Intact pulses. Skin: No rash. Neurologic: Alert, awake, oriented x3. No acute focal deficits appreciated. Investigations: Sodium 141, creatinine 0.79, hemoglobin is 9.6. Assessment And Recommendations: 1.Aortic valve endocarditis. Agree with the wide-spectrum antibiotics based on the culture and sens itivity and ID is following. I will arrange for transfer to [facility] [place]. I discussed the case with CT Surgery and they kindly accepted the patient, waiting on the bed for transfer for e valuation by CT Surgery for aortic valve replacement. The patient is currently hemodynamically stabl e. 2.Aortic valve regurgitation. It is at least moderate. The patient needs intervention of the aortic valve, for which the patient will be transferred to higher level of care facility as above. SR/MODL Voice ID: [id number] Report ID: [id number]
--- NOTE | 2023-03-31 07:25 | TEE ---
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 TRANSESOPHAGEAL ECHOCARDIOGRAM WAS INSERTED NO DIFFICULT 2. NORMAL LEFT VENTRICULAR EJECTION FRACTION 55-60% 3. MILD MITRAL REGURGITATION 4. AORTIC VALVE VEGETATION THAT MEASURES 1.6 BY 0.5 [employer] IS SEEN WITH MODERATE AORTIC INSUFFICIENCY TECHNOLOGIST: VERONICA KNOX
== END 2023-03-29 17:34 | disposition short-term general hospital (02) | DRG 307 ==
LOC: ER 20:56 → ERHOLD 03-24 00:50 → 4TH 03-24 01:20
PROVIDERS: ADMIT Hospitalist; ATTEND Internal Medicine
PROC: 5A09557 Assistance with Respiratory Ventilation, Greater than 96 Consecutive Hours, Continuous Positive Airway Pressure (ICD-10-PCS; 2023-03-24)
PROC: B24BZZ4 Ultrasonography of Heart with Aorta, Transesophageal (ICD-10-PCS; principal; 2023-03-28)
DX: I08.0 Rheumatic disorders of both mitral and aortic valves (principal); R78.81 Bacteremia; I10 Essential (primary) hypertension; I65.21 Occlusion and stenosis of right carotid artery; E11.9 Type 2 diabetes mellitus without complications; N28.1 Cyst of kidney, acquired; K76.9 Liver disease, unspecified; E78.00 Pure hypercholesterolemia, unspecified; G47.33 Obstructive sleep apnea (adult) (pediatric); I25.10 Atherosclerotic heart disease of native coronary artery without angina pectoris; B95.2 Enterococcus as the cause of diseases classified elsewhere; R63.4 Abnormal weight loss; I25.2 Old myocardial infarction; Z95.5 Presence of coronary angioplasty implant and graft; Z68.22 Body mass index [BMI] 22.0-22.9, adult; Z79.02 Long term (current) use of antithrombotics/antiplatelets; Z99.89 Dependence on other enabling machines and devices; Z86.73 Personal history of transient ischemic attack (TIA), and cerebral infarction without residual deficits; Z79.84 Long term (current) use of oral hypoglycemic drugs; Z79.82 Long term (current) use of aspirin; Z79.899 Other long term (current) drug therapy; Z91.199 Patient's noncompliance with other medical treatment and regimen due to unspecified reason; Z20.822 Contact with and (suspected) exposure to COVID-19
CPT/HCPCS: 36415; 71045; 71250; 80048; 80053; 81001; 82947; 83605; 83735; 84100; 85014; 85018; 85025; 85610; 85730; 87040; 87077; 87186; 87205; 87804; 87811; 92526; 92610; 93005; 93306; 93312; 94660; 96374; 97110; 97116; 97129; 97162; 97530; 99285; J0290; J0461; J0696; J1650; J1720; J1815; J2250; J2543; J3010; J7030; J7040